=== PATIENT | male | born 1950 | race Two or more races ===

== ENCOUNTER 2019-10-20 00:29 | Inpatient (IN) | payer OTHER ==
[~2019-10-20] VITALS: Ht 162.6 cm; Wt 82.1 kg
[2019-10-20] MEDS ORDERED: MORPHINE SULFATE 4 MG/ML, 1ML ONE (00:55)
[2019-10-20] MEDS ORDERED: ONDANSETRON 2MG/ML, 2ML ONE (00:56)
[2019-10-20] MEDS ORDERED: ONDANSETRON 2MG/ML, 2ML IVPush ONE (01:00)
[2019-10-20] MEDS ORDERED: MORPHINE SULFATE 4 MG/ML, 1ML IVPush PRN (01:00)
[2019-10-20] MEDS ORDERED: SODIUM CHLORIDE 0.9% 1,000ML IVBOLUS ONE (01:00)
[2019-10-20] MEDS ORDERED: SODIUM CHLORIDE FLUSH 10ML SYR IVF ONE (01:00)
--- NOTE | 2019-10-20 01:13 | NUR ---
TASK RN: THIS IS A 69Y M THAT COMES IN FOR ABD PAIN WORSENING FOR PAST FEW HOURS AND TONIGHT UNABLE TO SLEEP DUE TO DISCOMFORT. PT STS LAST NORMAL BM WAS LAST WEEK OR SO. PT RESTING ON [employer] CONNECTED TO MONITORING VSS NADN. PIV STARTED PT MEDICATED FLUIDS INFUSING WELL
[2019-10-20 01:40] LABS: BASOPHILS # (AUTO) 0.04 x10^3/uL (0-0.1); BASOPHILS % (AUTO) 0 % (0-1); EOSINOPHILS % (AUTO) 0 % (1-7); LYMPHOCYTES # (AUTO) 0.69 x10^3/uL (1-3.4); LYMPHOCYTES % (AUTO) 6 % (22-44); MD NO; MEAN CORPUSCULAR HEMOGLOBIN 28.1 pg (27.5-34.5); MEAN CORPUSCULAR HGB CONC 33.2 g/dL (33.2-36.2); MEAN CORPUSCULAR VOLUME 84.6 fL (81-97); MEAN PLATELET VOLUME 6.4 fL (7.4-10.4); MONOCYTES # (AUTO) 0.41 x10^3/uL (0.2-0.8); MONOCYTES % (AUTO) 4 % (2-9); NEUTROPHILS # (AUTO) 10.41 x10^3/uL (1.8-6.8); NEUTROPHILS % (AUTO) 90 % (42-75); PLATELET COUNT 246 x10^3/uL (130-400); RED BLOOD COUNT 5.16 x10^6/uL (4.38-5.82); RED CELL DISTRIBUTION WIDTH 13.5 % (9.4-14.8)
[2019-10-20 01:49] LABS: ALANINE AMINOTRANSFERASE 19 U/L (12-78); ALBUMIN 3.4 g/dL (3.4-5.0); ANION GAP 8 mmol/L (5-15); CALCIUM 8.9 mg/dL (8.5-10.1); CHLORIDE 108 mmol/L (98-107); CREATININE 1.46 mg/dL (0.7-1.3)
[2019-10-20 01:52] LABS: ALKALINE PHOSPHATASE 47 U/L (45-117); BILIRUBIN,TOTAL 0.8 mg/dL (0.2-1.0)
[2019-10-20] MEDS ORDERED: OMNIPAQUE 350 MG/ML, 100ML BOTTLE ONE (02:37)
--- NOTE | 2019-10-20 02:59 | NUR ---
REPORT FROM RAFAEL CURRIE.
[2019-10-20 05:45] VITALS: BP 154/82
[2019-10-20] MEDS ORDERED: hydrALAzine 20 MG/ML, 1ML IVPush PRN (06:00)
[2019-10-20] MEDS ORDERED: LABETALOL 5MG/ML, 20ML IVPush PRN (06:00)
[2019-10-20] MEDS ORDERED: LACTATED RINGERS 1,000 ML IV SCH (06:00)
[2019-10-20] MEDS ORDERED: LOSA100T14 PO (07:21)
[2019-10-20] MEDS ORDERED: LEVO75TA5 PO (07:21)
[2019-10-20] MEDS ORDERED: ERGO500017 PO (07:21)
[2019-10-20] MEDS ORDERED: ACET325C6 PO (07:21)
[2019-10-20] MEDS ORDERED: POTA10TA PO (07:21)
[2019-10-20] MEDS ORDERED: HYDR25TA6 PO (07:21)
[2019-10-20] MEDS: morphine SULFATE 10 MG/ML, 1ML IVPush PRN ×4 (07:50→21:23)
[2019-10-20] MEDS: D5%-0.45NACL+KCL 20MEQ 1,000 ML IV SCH ×2 (12:11→22:47)
[2019-10-20 14:00] VITALS: BP 128/80
[2019-10-20] MEDS ORDERED: GADOTERATE 10 MMOL/20 ML VIAL ONE (16:37)
[2019-10-20 17:24] LABS: MICROSCOPIC NOT IND
[2019-10-20 19:05] VITALS: BP 97/63
[2019-10-20] MEDS: ONDANSETRON 2MG/ML, 2ML IVPush PRN (21:23)
[2019-10-21 00:42] VITALS: BP 105/75
[2019-10-21 05:22] LABS: CHLORIDE 108 mmol/L (98-107)
[2019-10-21 05:26] LABS: MEAN CORPUSCULAR HEMOGLOBIN 28.5 pg (27.5-34.5); MEAN CORPUSCULAR HGB CONC 33.2 g/dL (33.2-36.2); MEAN CORPUSCULAR VOLUME 85.9 fL (81-97); MEAN PLATELET VOLUME 6.9 fL (7.4-10.4); PLATELET COUNT 206 x10^3/uL (130-400); RED BLOOD COUNT 4.83 x10^6/uL (4.38-5.82); RED CELL DISTRIBUTION WIDTH 14.1 % (9.4-14.8)
[2019-10-21 05:28] LABS: ANION GAP 5 mmol/L (5-15); CALCIUM 8.2 mg/dL (8.5-10.1)
[2019-10-21] MEDS: D5%-0.45NACL+KCL 20MEQ 1,000 ML IV SCH ×2 (06:05→15:22)
[2019-10-21] MEDS: morphine SULFATE 10 MG/ML, 1ML IVPush PRN ×3 (06:07→21:52)
[2019-10-21] MEDS: ONDANSETRON 2MG/ML, 2ML IVPush PRN ×3 (06:09→21:49)
[2019-10-21 06:11] LABS: BASOPHILS # (AUTO) 0.04 x10^3/uL (0-0.1); BASOPHILS % (AUTO) 0 % (0-1); EOSINOPHILS # (AUTO) 0.09 x10^3/uL (0-0.4); EOSINOPHILS % (AUTO) 1 % (1-7); LYMPHOCYTES # (AUTO) 0.84 x10^3/uL (1-3.4); LYMPHOCYTES % (AUTO) 6 % (22-44); MD SCAN; MONOCYTES % (AUTO) 8 % (2-9); NEUTROPHILS # (AUTO) 12.36 x10^3/uL (1.8-6.8); NEUTROPHILS % (AUTO) 85 % (42-75)
[2019-10-21 06:44] VITALS: BP 107/69
[2019-10-21] MEDS ORDERED: PIPERACILLIN/TAZO/PMX 3.375GM 50 ML IV SCH (12:00)
[2019-10-21 13:01] VITALS: BP 118/73
[2019-10-21 19:31] VITALS: BP 112/71
[2019-10-22] MEDS: D5%-0.45NACL+KCL 20MEQ 1,000 ML IV SCH ×3 (00:23→16:48)
[2019-10-22 01:42] VITALS: BP 116/76
[2019-10-22] MEDS: morphine SULFATE 10 MG/ML, 1ML IVPush PRN ×4 (02:07→21:47)
[2019-10-22] MEDS: ONDANSETRON 2MG/ML, 2ML IVPush PRN ×3 (05:58→21:45)
[2019-10-22 07:26] VITALS: BP 132/80
[2019-10-22 13:11] VITALS: BP 132/82
[2019-10-22 19:50] VITALS: BP 146/96
[2019-10-23] MEDS: D5%-0.45NACL+KCL 20MEQ 1,000 ML IV SCH (00:53)
[2019-10-23 02:25] VITALS: BP 125/83
[2019-10-23] MEDS: ONDANSETRON 2MG/ML, 2ML IVPush PRN ×2 (03:59→10:04)
[2019-10-23] MEDS: morphine SULFATE 10 MG/ML, 1ML IVPush PRN (04:01)
[2019-10-23 05:45] LABS: BASOPHILS # (AUTO) 0.03 x10^3/uL (0-0.1); BASOPHILS % (AUTO) 0 % (0-1); EOSINOPHILS # (AUTO) 0.37 x10^3/uL (0-0.4); EOSINOPHILS % (AUTO) 4 % (1-7); LYMPHOCYTES # (AUTO) 0.99 x10^3/uL (1-3.4); LYMPHOCYTES % (AUTO) 10 % (22-44); MD NO; MEAN CORPUSCULAR HEMOGLOBIN 28.4 pg (27.5-34.5); MEAN CORPUSCULAR VOLUME 85.9 fL (81-97); MONOCYTES # (AUTO) 0.91 x10^3/uL (0.2-0.8); MONOCYTES % (AUTO) 9 % (2-9); NEUTROPHILS # (AUTO) 7.37 x10^3/uL (1.8-6.8); NEUTROPHILS % (AUTO) 76 % (42-75); PLATELET COUNT 192 x10^3/uL (130-400); RED BLOOD COUNT 4.43 x10^6/uL (4.38-5.82); RED CELL DISTRIBUTION WIDTH 13.8 % (9.4-14.8)
[2019-10-23 05:49] LABS: CHLORIDE 108 mmol/L (98-107)
[2019-10-23 05:55] LABS: ALANINE AMINOTRANSFERASE 12 U/L (12-78); ALBUMIN 2.4 g/dL (3.4-5.0); ALKALINE PHOSPHATASE 46 U/L (45-117); ANION GAP 6 mmol/L (5-15); BILIRUBIN,TOTAL 1.5 mg/dL (0.2-1.0); CALCIUM 7.9 mg/dL (8.5-10.1); CREATININE 1.16 mg/dL (0.7-1.3); TOTAL PROTEIN 5.9 g/dL (6.4-8.2)
[2019-10-23 07:49] VITALS: BP 132/87
[2019-10-23 13:15] VITALS: BP 162/96
[2019-10-23] MEDS ORDERED: ONDA4TAB7 PO (17:13)
[2019-10-24] MEDS ORDERED: D5%-0.45NACL+KCL 20MEQ 1,000 ML IV SCH (09:30)
== END 2019-10-23 18:52 | disposition home or self-care (01) | DRG 438 ==
LOC: ED 01:04 → EDIP 04:03 → 4NE 05:43
PROVIDERS: ADMIT Family Medicine; ATTEND Family Medicine
DX: K85.00 Idiopathic acute pancreatitis without necrosis or infection (principal); N17.0 Acute kidney failure with tubular necrosis; K86.3 Pseudocyst of pancreas; E03.9 Hypothyroidism, unspecified; E66.9 Obesity, unspecified; E87.6 Hypokalemia; I10 Essential (primary) hypertension; K76.0 Fatty (change of) liver, not elsewhere classified; Z82.3 Family history of stroke; Z83.3 Family history of diabetes mellitus; Z96.643 Presence of artificial hip joint, bilateral; Z68.31 Body mass index [BMI] 31.0-31.9, adult
CPT/HCPCS: 36415; 74021; 74177; 74181; 74183; 76700; 80048; 80053; 81003; 83690; 83735; 84100; 84478; 85025; 87040; 96374; 99285; G0378; J2405; J2543; Q9967; J2270; J3480; J7030; J7120

== ENCOUNTER 2020-03-08 07:43 | Outpatient (CLI) | payer OTHER ==
[~2020-03-08 07:43] MED LIST: ACET325C6 PO; ERGO500017 PO; HYDR25TA6 PO; LEVO75TA5 PO; LOSA100T14 PO; ONDA4TAB7 PO; POTA10TA PO
[2020-03-08 09:15] LABS: BASOPHILS % (AUTO) 1 % (0-1); EOSINOPHILS % (AUTO) 3 % (1-7); LYMPHOCYTES % (AUTO) 20 % (22-44); MEAN CORPUSCULAR HEMOGLOBIN 28.6 pg (27.5-34.5); MEAN CORPUSCULAR HGB CONC 33.8 g/dL (33.2-36.2); MEAN PLATELET VOLUME 6.5 fL (7.4-10.4); MONOCYTES % (AUTO) 8 % (2-9); NEUTROPHILS % (AUTO) 68 % (42-75); PLATELET COUNT 259 x10^3/uL (130-400); RED BLOOD COUNT 5.74 x10^6/uL (4.38-5.82); RED CELL DISTRIBUTION WIDTH 14.1 % (9.4-14.8)
[2020-03-08 09:18] LABS: MD NO
[2020-03-08 09:27] LABS: ALANINE AMINOTRANSFERASE 29 U/L (12-78); ALBUMIN 3.7 g/dL (3.4-5.0); ANION GAP 6 mmol/L (5-15); CALCIUM 9.4 mg/dL (8.5-10.1); CHLORIDE 106 mmol/L (98-107); CREATININE 1.31 mg/dL (0.7-1.3)
[2020-03-08 09:29] LABS: ALKALINE PHOSPHATASE 62 U/L (45-117); BILIRUBIN,TOTAL 0.4 mg/dL (0.2-1.0); TOTAL PROTEIN 7.4 g/dL (6.4-8.2)
[2020-03-08] MEDS ORDERED: MULT-449 PO (09:42)
== END 2020-03-08 23:59 | disposition home or self-care (01) ==
LOC: STAR 07:43
PROVIDERS: ATTEND Internal Medicine Gastroenterology
DX: Z01.812 Encounter for preprocedural laboratory examination (principal); Z20.828 Contact with and (suspected) exposure to other viral communicable diseases; K85.90 Acute pancreatitis without necrosis or infection, unspecified; K86.3 Pseudocyst of pancreas; I45.10 Unspecified right bundle-branch block
CPT/HCPCS: 80053; 85025; 87635; 93005

== ENCOUNTER 2020-03-14 07:32 | Day surgery (SDC) | payer MEDICARE, OTHER ==
[~2020-03-14] VITALS: Ht 162.6 cm; Wt 75.8 kg
[~2020-03-14 07:32] MED LIST changes: +MULT-449 PO
[2020-03-14] MEDS ORDERED: FENTANYL PF 100 MCG/2ML ONE (08:01)
[2020-03-14 08:12] VITALS: BP 157/94
[2020-03-14] MEDS ORDERED: CHLORHEXIDINE 15 ML UDC ONE (08:19)
[2020-03-14] MEDS ORDERED: LACTATED RINGERS 1,000 ML IV SCH (08:30)
[2020-03-14] MEDS ORDERED: CHLORHEXIDINE 15 ML UDC MM ONE (08:30)
[2020-03-14] MEDS ORDERED: PROPOFOL 10 MG/ML, 20ML ONE (08:48)
[2020-03-14] MEDS ORDERED: DEXAMETHASONE 4 MG/ML, 1ML ONE (08:48)
[2020-03-14] MEDS ORDERED: SUCCINYLCHOLINE 20 MG/ML, 10ML ONE (08:48)
[2020-03-14] MEDS ORDERED: PHENYLEPHRINE 10 MG/ML ONE (08:48)
[2020-03-14] MEDS ORDERED: ROCURONIUM 10 MG/ML,10ML ONE (08:48)
[2020-03-14] MEDS ORDERED: ONDANSETRON 2MG/ML, 2ML ONE (08:48)
[2020-03-14] MEDS ORDERED: HALOPERIDOL 5 MG/ML IV PRN (09:00)
[2020-03-14] MEDS ORDERED: LABETALOL 5MG/ML, 20ML IV PRN (09:00)
[2020-03-14] MEDS ORDERED: ONDANSETRON 2MG/ML, 2ML IVPush PRN (09:00)
[2020-03-14] MEDS ORDERED: hydrALAzine 20 MG/ML, 1ML IV PRN (09:00)
[2020-03-14] MEDS ORDERED: METOPROLOL 1 MG/ML, 5ML IV PRN (09:00)
[2020-03-14] MEDS ORDERED: ACETAMINOPHEN 325 MG TABLET PO PRN (09:00)
[2020-03-14] MEDS ORDERED: EPHEDRINE 50 MG/ML, 1ML IVPush PRN (09:00)
[2020-03-14] MEDS ORDERED: FENTANYL PF 100 MCG/2ML IV PRN (09:00)
[2020-03-14] MEDS ORDERED: METOCLOPRAMIDE 5 MG/ML, 2ML IVPush PRN (09:00)
[2020-03-14] MEDS ORDERED: OXYcodone 5 MG/5 ML ORAL.SOL UDC PO PRN (09:00)
[2020-03-14] MEDS ORDERED: HYDROmorphone 1 MG/ML, 1ML INJ IVPush PRN (09:00)
[2020-03-14] MEDS ORDERED: PIPERACILLIN/TAZO/PMX 3.375GM 50 ML ONE (09:16)
== END 2020-03-14 11:30 | disposition home or self-care (01) ==
LOC: OUT 07:32
PROVIDERS: ATTEND Internal Medicine Gastroenterology
DX: K85.90 Acute pancreatitis without necrosis or infection, unspecified (principal); K86.1 Other chronic pancreatitis; K29.50 Unspecified chronic gastritis without bleeding; K31.7 Polyp of stomach and duodenum; I12.9 Hypertensive chronic kidney disease with stage 1 through stage 4 chronic kidney disease, or unspecified chronic kidney disease; N18.9 Chronic kidney disease, unspecified; E03.9 Hypothyroidism, unspecified; G47.30 Sleep apnea, unspecified; Z79.899 Other long term (current) drug therapy; Z72.89 Other problems related to lifestyle; Z98.890 Other specified postprocedural states; Z83.3 Family history of diabetes mellitus; Z82.49 Family history of ischemic heart disease and other diseases of the circulatory system
CPT/HCPCS: 43239; 43259; 88305; J0330; J1100; J2370; J2405; J2543; J2704; J3010; J7120

== ENCOUNTER 2020-03-17 00:54 | Inpatient (IN) | payer OTHER ==
[~2020-03-17] VITALS: Ht 162.6 cm; Wt 78.2 kg
[2020-03-17] MEDS ORDERED: MORPHINE SULFATE 4 MG/ML, 1ML ONE ×2 (01:26→02:12)
[2020-03-17] MEDS ORDERED: ONDANSETRON 2MG/ML, 2ML ONE (01:26)
[2020-03-17] MEDS ORDERED: ONDANSETRON 2MG/ML, 2ML IVPush ONE (01:30)
[2020-03-17 01:32] LABS: BASOPHILS % (AUTO) 0 % (0-1); EOSINOPHILS % (AUTO) 0 % (1-7); LYMPHOCYTES % (AUTO) 9 % (22-44); MEAN CORPUSCULAR HEMOGLOBIN 28.4 pg (27.5-34.5); MEAN CORPUSCULAR HGB CONC 33.9 g/dL (33.2-36.2); MEAN PLATELET VOLUME 6.4 fL (7.4-10.4); MONOCYTES % (AUTO) 6 % (2-9); NEUTROPHILS % (AUTO) 84 % (42-75); PLATELET COUNT 237 x10^3/uL (130-400); RED BLOOD COUNT 5.39 x10^6/uL (4.38-5.82); RED CELL DISTRIBUTION WIDTH 14.2 % (9.4-14.8)
[2020-03-17] MEDS: MORPHINE SULFATE 4 MG/ML, 1ML IVPush PRN ×2 (01:32→02:20)
[2020-03-17 01:35] LABS: MD NO
--- NOTE | 2020-03-17 01:42 | NUR ---
CC OF N/V AND ABD AND BACK PAIN 10/08 SINCE WEDNESDAY AFTER HAVING BIOPSY OF PANCREAS. PT REPORTS PAIN WAKING HIM FROM SLEEP. PT PLEASANT AFFECT AND COOPERATIVE, AT BEDSIDE.
[2020-03-17 01:43] LABS: ALANINE AMINOTRANSFERASE 25 U/L (12-78); ALBUMIN 3.6 g/dL (3.4-5.0); ANION GAP 7 mmol/L (5-15); CALCIUM 8.9 mg/dL (8.5-10.1); CHLORIDE 107 mmol/L (98-107); CREATININE 1.24 mg/dL (0.7-1.3)
[2020-03-17 01:48] LABS: ALKALINE PHOSPHATASE 54 U/L (45-117); BILIRUBIN,TOTAL 0.6 mg/dL (0.2-1.0); TOTAL PROTEIN 7.1 g/dL (6.4-8.2); TROPONIN I < 0.015 ng/mL (0.000-0.045)
[2020-03-17] MEDS ORDERED: SODIUM CHLORIDE 0.9% 1,000ML IVBOLUS ONE (02:00)
[2020-03-17 02:10] LABS: MICROSCOPIC NOT IND
--- NOTE | 2020-03-17 02:20 | NUR ---
task RN: pt resquesting more pain meds. pt medicated for pain per emar and IVF initiated.
[2020-03-17] MEDS ORDERED: ONDANSETRON 2MG/ML, 2ML IVPush PRN ×2 (04:00→05:00)
[2020-03-17] MEDS ORDERED: MORPHINE SULFATE 4 MG/ML, 1ML IVPush PRN ×2 (04:00→12:00)
[2020-03-17] MEDS ORDERED: SODIUM CHLORIDE 0.9% 1,000 ML IV ONE (04:00)
--- NOTE | 2020-03-17 04:32 | NUR ---
[facility] AT BEDSIDE
[2020-03-17] MEDS ORDERED: SODIUM CHLORIDE 0.9% 1,000 ML IV SCH (05:00)
[2020-03-17] MEDS ORDERED: hydrALAzine 20 MG/ML, 1ML IVPush PRN (05:00)
[2020-03-17] MEDS ORDERED: morphine SULFATE 10 MG/ML, 1ML IVPush PRN (05:00)
--- NOTE | 2020-03-17 05:15 | NUR ---
REPORT GIVEN TO LORENZO HALL
[2020-03-17 05:57] VITALS: BP 149/80
[2020-03-17] MEDS ORDERED: POTASSIUM CHLORIDE 40 MEQ in SODIUM CHLORIDE 0.9% 500 ML IV ONE (06:30)
[2020-03-17 07:29] VITALS: BP 137/80
[2020-03-17] MEDS: LACTATED RINGERS 1,000 ML IV SCH ×2 (07:59→23:02)
[2020-03-17] MEDS: ENOXAPARIN 40 MG/0.4 ML SQ SCH (10:21)
[2020-03-17 15:53] VITALS: BP 130/77
[2020-03-17 19:22] VITALS: BP 123/70
[2020-03-18 00:59] VITALS: BP 119/67
[2020-03-18 05:17] LABS: BASOPHILS % (AUTO) 0 % (0-1); EOSINOPHILS % (AUTO) 1 % (1-7); LYMPHOCYTES % (AUTO) 11 % (22-44); MEAN CORPUSCULAR HEMOGLOBIN 28.5 pg (27.5-34.5); MEAN CORPUSCULAR HGB CONC 33.8 g/dL (33.2-36.2); MEAN PLATELET VOLUME 6.6 fL (7.4-10.4); MONOCYTES % (AUTO) 10 % (2-9); NEUTROPHILS % (AUTO) 78 % (42-75); PLATELET COUNT 217 x10^3/uL (130-400); RED BLOOD COUNT 4.98 x10^6/uL (4.38-5.82); RED CELL DISTRIBUTION WIDTH 13.7 % (9.4-14.8)
[2020-03-18 05:21] LABS: MD NO
[2020-03-18 05:26] LABS: ANION GAP 6 mmol/L (5-15); CHLORIDE 110 mmol/L (98-107)
[2020-03-18 05:27] LABS: CALCIUM 8.5 mg/dL (8.5-10.1); CREATININE 1.11 mg/dL (0.7-1.3)
[2020-03-18 07:36] VITALS: BP 138/74
[2020-03-18] MEDS: LOSARTAN 100 MG TAB PO SCH (09:05)
[2020-03-18] MEDS: SIMETHICONE 125 MG CHEW TAB PO SCH ×3 (09:05→17:10)
[2020-03-18] MEDS: ENOXAPARIN 40 MG/0.4 ML SQ SCH (09:06)
[2020-03-18] MEDS: LEVOTHYROXINE 75 MCG TABLET PO SCH (09:06)
[2020-03-18 14:35] VITALS: BP 131/80
[2020-03-18 19:10] VITALS: BP 143/81
[2020-03-19 00:24] VITALS: BP 144/80
[2020-03-19] MEDS: SIMETHICONE 125 MG CHEW TAB PO SCH ×2 (07:35→13:00)
[2020-03-19] MEDS: LEVOTHYROXINE 75 MCG TABLET PO SCH (07:35)
[2020-03-19] MEDS: ENOXAPARIN 40 MG/0.4 ML SQ SCH (07:36)
[2020-03-19] MEDS: LOSARTAN 100 MG TAB PO SCH (07:36)
[2020-03-19 07:37] VITALS: BP 161/85
== END 2020-03-19 13:46 | disposition home or self-care (01) | DRG 439 ==
LOC: ED 04:08 → EDIP 04:19 → 3N 05:37 → DCLOUNGE 03-19 13:40
PROVIDERS: ADMIT Internal Medicine; ATTEND Hospitalist
DX: K85.00 Idiopathic acute pancreatitis without necrosis or infection (principal); K86.3 Pseudocyst of pancreas; E03.9 Hypothyroidism, unspecified; E87.6 Hypokalemia; I12.9 Hypertensive chronic kidney disease with stage 1 through stage 4 chronic kidney disease, or unspecified chronic kidney disease; K76.0 Fatty (change of) liver, not elsewhere classified; K80.20 Calculus of gallbladder without cholecystitis without obstruction; N18.30 Chronic kidney disease, stage 3 unspecified; Z96.643 Presence of artificial hip joint, bilateral; Z82.3 Family history of stroke; Z83.3 Family history of diabetes mellitus
CPT/HCPCS: 36415; 74177; 80048; 80053; 81003; 83690; 84484; 85025; 93005; 99285; G0378; J1650; J2405; J3480; J2270; J7030; J7040; J7120

== ENCOUNTER 2020-05-01 09:59 | Day surgery (SDC) | payer MEDICARE, OTHER ==
[~2020-05-01] VITALS: Ht 162.6 cm; Wt 75.8 kg
[2020-05-01 10:25] VITALS: BP 165/101
[2020-05-01] MEDS ORDERED: LACTATED RINGERS 1,000 ML IV SCH (10:30)
[2020-05-01] MEDS ORDERED: CHLORHEXIDINE 15 ML UDC MM ONE (10:30)
[2020-05-01] MEDS ORDERED: BUPIVACAINE/PF-EPI 0.5% 1:200K ONE (12:55)
[2020-05-01] MEDS ORDERED: FENTANYL PF 250 MCG/5ML ONE (13:00)
[2020-05-01] MEDS ORDERED: MIDAZOLAM 1 MG/ML, 2ML ONE (13:00)
[2020-05-01] MEDS ORDERED: PROPOFOL 10 MG/ML, 20ML ONE (13:01)
[2020-05-01] MEDS ORDERED: DEXAMETHASONE 4 MG/ML, 1ML ONE (13:01)
[2020-05-01] MEDS ORDERED: CEFAZOLIN 1,000 MG ONE ×2 (13:02)
[2020-05-01] MEDS ORDERED: SUGAMMADEX 200 MG/2 ML IVPush ONE (13:17)
[2020-05-01] MEDS ORDERED: ROCURONIUM 10 MG/ML,10ML ONE (13:17)
[2020-05-01] MEDS ORDERED: ONDANSETRON 2MG/ML, 2ML ONE (13:17)
[2020-05-01] MEDS ORDERED: OXYC5TAB2 PO (14:08)
[2020-05-01] MEDS ORDERED: ACET-1600 PO (14:08)
[2020-05-01] MEDS ORDERED: IBUP-1223 PO (14:08)
[2020-05-01] MEDS ORDERED: OXYcodone 5 MG/5 ML ORAL.SOL UDC ONE (14:16)
[2020-05-01] MEDS ORDERED: PROMETHAZINE 25 MG/ML, 1ML IVPush PRN ×2 (14:30→15:00)
[2020-05-01] MEDS: FENTANYL PF 100 MCG/2ML IV PRN ×2 (14:30→14:38)
[2020-05-01] MEDS ORDERED: OXYcodone 5 MG/5 ML ORAL.SOL UDC PO PRN ×2 (14:30→15:00)
[2020-05-01] MEDS ORDERED: MEPERIDINE/PF 25MG/0.5ML IVPush PRN ×2 (14:30→15:00)
[2020-05-01] MEDS ORDERED: ONDANSETRON 2MG/ML, 2ML IVPush PRN ×2 (14:30→15:00)
[2020-05-01] MEDS ORDERED: ERGOCALCIFEROL 50,000 UNIT CAPSULE PO SCH (14:30)
[2020-05-01] MEDS ORDERED: FENTANYL PF 100 MCG/2ML ONE (14:42)
[2020-05-01] MEDS ORDERED: KETOROLAC 30 MG/1 ML ONE (14:57)
[2020-05-01] MEDS ORDERED: KETOROLAC 30 MG/1 ML IVPush ONE (15:00)
[2020-05-01] MEDS ORDERED: DIPHENHYDRAMINE 50 MG/ML, 1ML IVPush PRN ×2 (15:00)
[2020-05-01] MEDS ORDERED: ALBUTEROL SULFATE 2.5 MG/3 ML NPPB PRN (15:00)
[2020-05-01] MEDS ORDERED: FENTANYL PF 100 MCG/2ML IV PRN (15:00)
[2020-05-01] MEDS ORDERED: hydrALAzine 20 MG/ML, 1ML IV PRN (15:00)
[2020-05-01] MEDS ORDERED: EPHEDRINE 50 MG/ML, 1ML IVPush PRN (15:00)
[2020-05-01] MEDS ORDERED: DIAZEPAM 5 MG/ML, 2ML IVPush PRN (15:00)
[2020-05-01] MEDS ORDERED: HYDROmorphone 1 MG/ML, 1ML INJ IVPush PRN (15:00)
[2020-05-01] MEDS ORDERED: MIDAZOLAM 1 MG/ML, 2ML IV PRN (15:00)
[2020-05-01] MEDS ORDERED: LABETALOL 5MG/ML, 20ML IV PRN (15:00)
[2020-05-01] MEDS ORDERED: PROMETHAZINE 12.5 MG SUPP PR PRN (15:00)
[2020-05-01] MEDS ORDERED: ACETAMINOPHEN 325 MG TABLET PO PRN (15:00)
[2020-05-01] MEDS ORDERED: POTASSIUM CHLORIDE 10 MEQ TABLET.ER PO SCH (21:00)
[2020-05-02] MEDS ORDERED: MULTIVITAMIN 1 TABLET PO SCH (09:00)
[2020-05-02] MEDS ORDERED: LOSARTAN 100 MG TAB PO SCH (09:00)
[2020-05-02] MEDS ORDERED: HYDROCHLOROTHIAZIDE 25 MG TABLET PO SCH (09:00)
[2020-05-02] MEDS ORDERED: LEVOTHYROXINE 75 MCG TABLET PO SCH (09:00)
== END 2020-05-01 17:00 | disposition home or self-care (01) ==
LOC: OUT 09:59
PROVIDERS: ATTEND Surgery
DX: K81.1 Chronic cholecystitis (principal); K85.10 Biliary acute pancreatitis without necrosis or infection; I10 Essential (primary) hypertension; E03.9 Hypothyroidism, unspecified; G47.33 Obstructive sleep apnea (adult) (pediatric); Z20.822 Contact with and (suspected) exposure to COVID-19; Z79.890 Hormone replacement therapy; Z79.899 Other long term (current) drug therapy; Z98.890 Other specified postprocedural states
CPT/HCPCS: 47562; 88304; J0690; J1100; J2250; J2405; J2704; J3010; J7120; U0003